=== PATIENT | male | born 1950 | race Caucasian/White ===

== ENCOUNTER → 2018-06-23 | Outpatient (CLI) | payer OTHER ==
--- NOTE | 2018-06-23 19:44 | RAD ---
Indication: Upper and swelling and redness. Pain in the left lateral calf. History of cellulitis. TECHNIQUE: Grayscale and color Doppler images of the area of interest in the left calf. COMPARISON: None FINDINGS: Diffuse edema is seen in the calf soft tissue. There is a 4.6 x 11.4 x 1.3 cm subdermal area of hypoechogenicity. 2 mm echogenic focus is seen with posterior shadowing most likely dermal calcification. IMPRESSION: Diffuse edema of the calf soft tissue with subdermal phlegmon. Developing abscess is not ruled out. Electronically signed by: Jeremy Keller DO (06/23/2018 7:41 PM) [facility]
== END | disposition home or self-care (01) ==
LOC: US 18:49
PROVIDERS: ATTEND Psychiatry & Neurology Neurology
DX: L02.416 Cutaneous abscess of left lower limb (principal)
CPT/HCPCS: 76881